=== PATIENT | female | born 1980 | race Hispanic/Latino ===

== ENCOUNTER 2020-09-16 06:38 | Day surgery (SDC) | payer OTHER ==
[2020-09-09 13:23] LABS: Urine Appearance CLEAR (Clear); Urine Bilirubin NEGATIVE (Negative); Urine Blood NEGATIVE (Negative); Urine Color YELLOW (Yellow); Urine Glucose NEGATIVE (Negative); Urine Protein NEGATIVE (Negative); Urine Urobilinogen 0.2 mg/dL (0.2-1.0)
[2020-09-09 13:25] LABS: Urine Microscopic Reflex NO UMIC
[2020-09-09 13:37] LABS: Absolute Lymphocytes (CBC) 2.3 K/uL (0.7-4.9); Basophils % 0.7 % (0-1.3); Hematocrit 41.6 % (36.0-45.0); Lymphocytes % 33.1 % (15.3-44.8); MPV 8.2 fL (7.6-11.3); RBC Red Blood Cell Count 4.51 M/uL (3.86-4.86)
[2020-09-16] MEDS ORDERED: SCOPOLAMINE HYDROBROMIDE PATCH TD ONE (07:15)
[2020-09-16] MEDS ORDERED: CEFAZOLIN/SWI 2gm 2 GM/20 ML SYR ONE (07:16)
[2020-09-16] MEDS ORDERED: Ringers Lactate 1,000 ML IV ONE (07:16)
[2020-09-16] MEDS ORDERED: KETAMINE HCL 500 MG/5 ML VIAL ONE (07:20)
[2020-09-16] MEDS ORDERED: ROCURONIUM 50 MG/5 ML VIAL IV ONE (07:20)
[2020-09-16] MEDS ORDERED: dexAMETHasone 10 MG/ML VIAL ONE (07:20)
[2020-09-16] MEDS ORDERED: MIDAZOLAM HCL 2 MG/2 ML INJ ONE (07:20)
[2020-09-16] MEDS ORDERED: propofoL 200 MG/20 ML VIAL IV ONE (07:20)
[2020-09-16] MEDS ORDERED: FENTANYL CITR 250 MCG/5 ML ONE (07:20)
[2020-09-16] MEDS ORDERED: LIDOCAINE 2% MPF 5 ML VIAL ONE (07:20)
[2020-09-16] MEDS ORDERED: ONDANSETRON 4 MG/2 ML VIAL ONE (07:21)
[2020-09-16] MEDS ORDERED: NS 0.9% VIAL 10 ML ONE (07:21)
[2020-09-16] MEDS ORDERED: BUPIVACAINE 0.25% PF 10 ML VIAL ONE (07:59)
[2020-09-16] MEDS ORDERED: VECURONIUM 10 MG/VIAL IV ONE (09:24)
[2020-09-16] MEDS ORDERED: KETOROLAC 30 MG/ML INJ ONE (10:12)
[2020-09-16] MEDS ORDERED: NEOSTIGMINE 1 MG/ML -5 ML ONE (11:08)
[2020-09-16] MEDS ORDERED: GLYCOPYRROLATE 0.2 MG/ML SYR ONE (11:08)
[2020-09-16 11:12] VITALS: O2SAT 100
[2020-09-16] MEDS ORDERED: HYDROCODONE/APAP 5/325 MG TAB PO ONE (12:30)
[2020-09-16] MEDS ORDERED: HYDROCODONE/APAP 5/325 MG TAB ONE (12:50)
[2020-09-16 12:58] VITALS: BP 110/69; TEMP 97.3
--- NOTE | 2020-10-20 08:30 | OP ---
Date of Procedure: 09/16/2020 Surgeon: Bia Jernigan MD Child Protective Services Social Worker: Elise Rodriguez Preoperative Diagnoses: AUB-L, dysmenorrhea, uterine prolapse. Postoperative Diagnoses: AUB-L, dysmenorrhea, stage II uterine prolapse, and endometriosis. Procedures Performed: 1. Total laparoscopic hysterectomy, bilateral salpingectomy. 2. Endometriosis excision. 3. Uterosacral ligament suspension colpopexy and cystoscopy. Anesthesia: General endotracheal. Specimens: Uterus, bilateral tubes, endometriosis, right uterosacral ligament. Findings: Endometriosis on the distal left uterosacral right uterosacral. A POP-Q of -2, -2, -2, 4, moderate, 7, -1, -1.-4. Complications: No complications. Drains: No drains. Condition: Patient's condition stable. Indications: Patient is a 39-year-old, presented with severe heavy menstrual bleeding. She had been placed on an anticoagulant after orthopedic surgery and her bleeding had gotten much worse. She was anemic, and she was evaluated with transvaginal ultrasound. Endometrium was thick. It was sampled. No evidence of any atypia or malignancy. She was given a dmpa injection to control her bleeding; however, as a definitive treatment, she was prepared to go through hysterectomy. On office evaluation, uterine prolapse was also noted. She was consented for hysterectomy laparoscopic salpingectomy, uterosacral suspension and procedures as needed. Description Of Procedure: She was then taken back to the OR on the of the surgery after all this was discussed again in the preoperative holding area and the questions were answered to her satisfaction. She was placed in a supine fashion on the table. General anesthesia was given. Placed in dorsal lithotomy position using Alex stirrups. After abdomen, vulva, vagina, and perineum were prepped and draped in a sterile fashion. Fernandez was placed to drain the bladder and attached for retrograde filling. A large VCare introduced in the uterus in the usual fashion. This area was draped. A 1 cm periumbilical incision was made with the scalpel, 15 blade. After it was made appropriately, the fascia was incised and tagged with 0 Vicryl sutures and peritoneum entered sharply. S-retractors were placed. Chirag introduced. Site of entry was checked, unremarkable. Patient was placed in Trendelenburg position and peritoneal cavity was surveyed for endometriosis. Then, both ureters were traced from the pelvic brim to the ureteric tunnel. There was no evidence anoatomical distortion. Both ovaries were well visualized, normal- appearing ovaries. The tubes were also unremarkable. Endometriosis was seen on distal left uterosacral ligament more prominent to than on the right uterosacral, but there were implants on both sides. So, the endometriosis was picked up and excised with the help of a monopolar needle. Once these implants were excised and handed out. The hysterectomy was started. The peritoneal reflection between the round ligament and the parovarian space was picked up and incised with the help of scissors. Then, the opening was made to isolate the round ligament. It was taken down. The tube was taken down and the utero- ovarian ligament. The anterior leaf of broad ligament was opened up to raise the bladder flap all the way to the right side. The bladder was dissected off the anterior vaginal wall, and the left vessels were well visualized and isolated. The posterior peritoneum on the left side taken down to the left uterosacral and then the broad ligament skeletonized. On the opposite side, similar dissection was performed taking down the tube, the utero-ovarian ligament, and the round ligament, the opening of the anterior leaf of the broad ligament to connect with a bladder flap from the opposite side and posterior to the right uterosacral ligament, and once all these were well visualized and dissected, the vessels on the right side were isolated as well. Then, once the vaginal cuff was well visualized, the vessels on the right side were taken down with the help of the bipolar handle and then the LigaSure for vessel sealing. Then, the cardinal ligaments were taken down. The cuff was cleaned up. Then, on the left side, the vessels were taken down, then the cardinal ligaments, then the anterior vaginal wall was cleaned, dissected to visualize at least 2 cm and posteriorly taken down all the way to the uterosacral attachment. Hemostasis noted. Circumferential colpotomy was performed with a monopolar hook. Specimen pulled up through the vagina. Vaginal occluder was placed. Thorough irrigation and suction were performed. Did appear to have a significant drop and so I decided to proceed with a uterosacral suspension. The simple 0 Vicryl sutures were placed at angles on both sides and [id number] x3 in the middle. PDS suture was placed to the pickler helper the distal uterosacral and pickler helper an area on the vaginal cuff. the suture was passed through the uterosacral, out through the uterosacral and then through the posterior rectovaginal septum with connective tissue. Once all this was taken, a vohnpl-sp-alfde was placed tied down. The uterosacral was very well suspended to the vaginal apex. On the opposite side, similar dissection was performed. Once this was done, the scope was dropped in, and the cystoscopy was performed after removing the Fernandez with a 17-[place] sheath, 30-degree lens, and normal saline. Excellent jets of urine from both ureteric orifices. No evidence of any occlusion. No foreign body. No tumors. The scope was pulled out. Fernandez was replaced. Came back into the abdomen after changing gloves. Excellent hemostasis. The ovaries appeared to be normal. All the trocars were removed. Evacuated gas, and fascia was injected with 0.25% Marcaine both at the skin and the fascial level for postoperative pain control. Fascia closed at the umbilicus with a 0 Vicryl tagged sutures, tied to each other and 4 Vicryl in the subcutaneous closure. In suprapubic, simple 0 Vicryl stitch was placed and 4-0 subcu. Instrument and sponge counts were correct at the end of the case. Fernandez was removed. Patient was recovered from anesthesia and taken to PACU in stable condition. Her boot was replaced before she was transferred to bed. JONA/KAYCE Voice ID: [id number] Report ID: [id number]
== END 2020-09-16 13:40 | disposition home or self-care (01) ==
LOC: OR 06:38
PROVIDERS: ATTEND Obstetrics & Gynecology
PROC: 0UT74ZZ Resection of Bilateral Fallopian Tubes, Percutaneous Endoscopic Approach (ICD-10-PCS; 2020-09-16)
PROC: 0USG7ZZ Reposition Vagina, Via Natural or Artificial Opening (ICD-10-PCS; 2020-09-16)
PROC: 0UB44ZZ Excision of Uterine Supporting Structure, Percutaneous Endoscopic Approach (ICD-10-PCS; 2020-09-16)
PROC: 0UT94ZZ Resection of Uterus, Percutaneous Endoscopic Approach (ICD-10-PCS; principal; 2020-09-16 07:30)
DX: N92.1 Excessive and frequent menstruation with irregular cycle (principal); N94.6 Dysmenorrhea, unspecified; D25.9 Leiomyoma of uterus, unspecified; N81.4 Uterovaginal prolapse, unspecified; N88.8 Other specified noninflammatory disorders of cervix uteri
CPT/HCPCS: 85025; 36415; 86900; 86850; 81025; 86901; 88305; 88307; 81003; 58571; 57283; 58662; J2704; J2250; J3010; J1100; J2710; J0690; J7120; J2405